=== PATIENT | female | born 1975 | race Two or more races ===

== ENCOUNTER → 2018-01-09 | Emergency (ER) | payer OTHER ==
[~2018-01-09] VITALS: Ht 162.6 cm; Wt 81.2 kg
[~2018-01-09] MED LIST: ANTIVERT25 M1 PO; COZAAR50 MG; COZAAR50 MG PO; HYDROCHLOROTHIA50 MG; LIPOFLAVOVIT CA1 TAB PO; METFORMIN HCL500 M2 PO; PANADOL EXTRA500 MG PO; PRILOSEC OTC20 MG
== END | disposition home or self-care (01) ==
LOC: ER 07:52
DX: E13.65 Other specified diabetes mellitus with hyperglycemia (principal)

== ENCOUNTER 2018-01-12 16:23 | Outpatient (CLI) | payer OTHER | END 2018-01-12 16:24 | disposition home or self-care (01) | LOC: LAB 16:23 | DX: N39.0 Urinary tract infection, site not specified (principal) ==

== ENCOUNTER → 2018-01-18 | Outpatient (CLI) | payer OTHER | END | disposition home or self-care (01) | LOC: LAB 17:04 | DX: E11.65 Type 2 diabetes mellitus with hyperglycemia (principal) ==

== ENCOUNTER 2018-05-04 07:02 | Outpatient (CLI) | payer OTHER | END 2018-05-04 07:10 | disposition home or self-care (01) | LOC: LAB 07:02 | DX: E11.65 Type 2 diabetes mellitus with hyperglycemia (principal); I10 Essential (primary) hypertension ==

== ENCOUNTER 2018-07-13 14:02 | Outpatient (CLI) | payer OTHER | END 2018-07-13 14:06 | disposition home or self-care (01) | LOC: MAMO-SONO 14:02 | DX: Z12.31 Encounter for screening mammogram for malignant neoplasm of breast (principal); N64.89 Other specified disorders of breast; D25.9 Leiomyoma of uterus, unspecified ==

== ENCOUNTER 2018-12-25 16:18 | Emergency (ER) | payer OTHER ==
[~2018-12-25] VITALS: Ht 160 cm; Wt 71.7 kg
== END 2018-12-25 20:30 | disposition home or self-care (01) ==
LOC: ER 16:18
DX: A49.3 Mycoplasma infection, unspecified site (principal); B34.9 Viral infection, unspecified

== ENCOUNTER 2020-03-05 07:58 | Outpatient (CLI) | payer OTHER | END 2020-03-05 08:01 | disposition home or self-care (01) | LOC: LAB 07:58 | DX: E03.8 Other specified hypothyroidism (principal); E78.00 Pure hypercholesterolemia, unspecified; E11.65 Type 2 diabetes mellitus with hyperglycemia ==

== ENCOUNTER 2020-06-27 16:13 | Outpatient (CLI) | payer OTHER | END 2020-06-27 18:00 | disposition home or self-care (01) | LOC: PPH VACUNA 16:13 | DX: Z23 Encounter for immunization (principal) ==

== ENCOUNTER 2020-07-18 11:05 | Emergency (ER) | payer OTHER ==
[~2020-07-18] VITALS: Ht 160 cm; Wt 72.6 kg
== END 2020-07-18 18:37 | disposition home or self-care (01) ==
LOC: ER 11:05
DX: U07.1 COVID-19 (principal); K52.9 Noninfective gastroenteritis and colitis, unspecified

== ENCOUNTER 2020-08-20 10:43 | Outpatient (CLI) | payer OTHER | END 2020-08-20 10:59 | disposition home or self-care (01) | LOC: LAB 10:43 | DX: E11.65 Type 2 diabetes mellitus with hyperglycemia (principal); E78.89 Other lipoprotein metabolism disorders ==

== ENCOUNTER 2020-12-17 11:08 | Outpatient (CLI) | payer OTHER | END 2020-12-17 11:13 | disposition home or self-care (01) | LOC: LAB 11:08 | PROVIDERS: ATTEND Internal Medicine Nephrology | DX: N39.0 Urinary tract infection, site not specified (principal); N18.2 Chronic kidney disease, stage 2 (mild) ==

== ENCOUNTER 2020-12-17 12:05 | Outpatient (CLI) | payer OTHER | END 2020-12-17 12:09 | disposition home or self-care (01) | LOC: SONOGRAMA 12:05 | PROVIDERS: ATTEND Internal Medicine Nephrology | DX: N20.0 Calculus of kidney (principal); N18.2 Chronic kidney disease, stage 2 (mild) ==

== ENCOUNTER 2021-03-11 10:22 | Outpatient (CLI) | payer OTHER | END 2021-03-11 10:27 | disposition home or self-care (01) | LOC: SONOGRAMA 10:22 → MAMO-SONO 12:15 | PROVIDERS: ATTEND Internal Medicine Endocrinology, Diabetes & Metabolism | DX: E04.2 Nontoxic multinodular goiter (principal) ==

== ENCOUNTER → 2021-04-03 | Outpatient (CLI) | payer OTHER | END | disposition home or self-care (01) | LOC: MAMO-SONO 09:45 | PROVIDERS: ATTEND Obstetrics & Gynecology | DX: Z12.31 Encounter for screening mammogram for malignant neoplasm of breast (principal); N64.4 Mastodynia; N63 Unspecified lump in breast ==

== ENCOUNTER → 2021-04-07 07:41 | Outpatient (CLI) | payer OTHER | END | disposition home or self-care (01) | LOC: LAB 07:41 | PROVIDERS: ATTEND Obstetrics & Gynecology | DX: E16.2 Hypoglycemia, unspecified (principal); N39.0 Urinary tract infection, site not specified; E78.2 Mixed hyperlipidemia; E56.9 Vitamin deficiency, unspecified; E55.9 Vitamin D deficiency, unspecified; E03.9 Hypothyroidism, unspecified; R97.1 Elevated cancer antigen 125 [CA 125]; R53.1 Weakness; E66.01 Morbid (severe) obesity due to excess calories; Z11.3 Encounter for screening for infections with a predominantly sexual mode of transmission ==

== ENCOUNTER 2021-04-17 15:54 | Outpatient (CLI) | payer OTHER | END 2021-04-17 16:00 | disposition home or self-care (01) | LOC: LAB 15:54 | PROVIDERS: ATTEND Internal Medicine | DX: Z11.4 Encounter for screening for human immunodeficiency virus [HIV] (principal); Z13.89 Encounter for screening for other disorder ==

== ENCOUNTER 2021-04-23 07:18 | Outpatient (CLI) | payer OTHER | END 2021-04-23 07:23 | disposition home or self-care (01) | LOC: LAB 07:18 | PROVIDERS: ATTEND Internal Medicine | DX: B02.9 Zoster without complications (principal) ==

== ENCOUNTER → 2021-07-08 | Outpatient (CLI) | payer OTHER | END | disposition home or self-care (01) | LOC: PPH VACUNA 08:00 | PROVIDERS: ATTEND Emergency Medicine Pediatric Emergency Medicine | DX: Z23 Encounter for immunization (principal) ==

== ENCOUNTER → 2021-08-11 08:16 | Outpatient (CLI) | payer OTHER | END | disposition home or self-care (01) | LOC: LAB 08:16 | PROVIDERS: ATTEND Internal Medicine Endocrinology, Diabetes & Metabolism | DX: E78.00 Pure hypercholesterolemia, unspecified (principal); E11.69 Type 2 diabetes mellitus with other specified complication ==

== ENCOUNTER 2021-08-13 08:23 | Outpatient (CLI) | payer OTHER | END 2021-08-13 08:24 | disposition home or self-care (01) | LOC: NUCLEAR 08:23 | PROVIDERS: ATTEND Internal Medicine | DX: R53.83 Other fatigue (principal); R53.1 Weakness; R07.89 Other chest pain ==

== ENCOUNTER 2021-10-20 17:20 | Outpatient (CLI) | payer OTHER | END 2021-10-20 17:26 | disposition home or self-care (01) | LOC: LAB 17:20 | DX: U07.1 COVID-19 (principal) ==

== ENCOUNTER 2021-11-25 08:00 | Outpatient (CLI) | payer OTHER | END 2021-11-25 08:30 | disposition home or self-care (01) | LOC: PPH VACUNA 08:00 | PROVIDERS: ATTEND Emergency Medicine Pediatric Emergency Medicine | DX: Z23 Encounter for immunization (principal) ==

== ENCOUNTER 2022-06-05 17:22 | Outpatient (CLI) | payer OTHER | END 2022-06-05 17:39 | disposition home or self-care (01) | LOC: LAB 17:22 | DX: U07.1 COVID-19 (principal) ==

== ENCOUNTER 2022-09-25 07:46 | Outpatient (CLI) | payer OTHER | END 2022-09-25 07:50 | disposition home or self-care (01) | LOC: MAMO-SONO 07:46 | PROVIDERS: ATTEND Obstetrics & Gynecology | DX: Z12.31 Encounter for screening mammogram for malignant neoplasm of breast (principal); N64.4 Mastodynia; N63.0 Unspecified lump in unspecified breast ==